=== PATIENT | male | born 1965 | race Two or more races ===

== ENCOUNTER 2025-01-01 00:06 | Inpatient (IN) | payer MEDICARE, MEDICAID ==
[~2025-01-01] VITALS: Ht 167.6 cm; Wt 61.7 kg
--- NOTE | 2025-01-01 00:46 | ED.PDOC ---
GI ASSESSMENT HPI Comments 59-year-old male who came to ER for abdominal pain. Patient has history of liver cirrhosis. States for the past few days he has been having diffuse abdominal pain and abdominal distention. Patient states that he usually has abdominal paracentesis twice a month to relieve the pressure. Chief Complaint: Abdominal Pain Time Seen by MD: 00:46 Reviewed Notes: Nurses Notes Allergies: Coded Allergies: Ketorolac Tromethamine (Verified Adverse Reaction, Mild, itching, 01/01/25) Home Meds Reported Medications Scopolamine (Scopolamine) 1 Mg/3 Days Dis, 1 MG TD, DIS 01/01/25 Spironolactone (Spironolactone) 50 Mg Tab, 50 MG PO BID, TAB 01/01/25 Potassium Chloride (POTASSIUM CHLORIDE CR) 10 Meq Tb, 20 MEQ PO, TAB 01/01/25 Ferrous Sulfate (Ferrous Sulfate) 325 Mg Tab, 325 MG PO TIDWM 01/01/25 Folic Acid (Folic Acid) 1 Mg Tab, 1 MG PO DAILY, MG 01/01/25 Levetiracetam (Keppra) 500 Mg Tab, 500 MG PO DAILY, TAB 01/01/25 Ondansetron HCl (Ondansetron Hydrochloride) 4 Mg Tab, 4 MG PO, TAB 01/01/25 Pentoxifylline (TRENTAL ER TABLET) 400 Mg Tb, 400 MG PO TID, TAB 01/01/25 Magnesium Oxide (MAGNESIUM OXIDE) 400 Mg Tab, 400 MG OR, TAB 01/01/25 Rifaximin (Xifaxan) 550 Mg Tab, 550 MG PO BID, TAB 01/01/25 Lactulose (Lactulose) 10 Gm/15 Ml Avril, 10 GM PO, ML 01/01/25 Multiple Vitamin (Multivitamins) Tab, 1 TAB PO DAILY, #30 TAB 2 Refills 01/01/25 Omeprazole (Gnp Omeprazole) 20 Mg Tab, 40 MG PO DAILY, TAB 01/01/25 Thiamine Mononitrate (B1) 100 Mg Tab, 100 MG PO, TAB 01/01/25 Furosemide (Furosemide) 40 Mg Tab, 40 MG PO DAILY 01/01/25 Information Source: Patient Mode of Arrival: Ambulatory Timing: Hours Duration: Since onset Prehospital treatment: None Quality: Aching Severity: Moderate Recent Hx of: Liver Disease Pain Location: Diffuse Associated sign and symptoms: Abdominal Pain, Other (Abdominal distention) Past Medical History PAST MEDICAL HISTORY: Liver Surgical History (Other): Abdominal paracentesis Family History Family History: Reviewed,noncontributory to illness Social History Smoker: Non-Smoker Alcohol: Sober Drugs: Denies Drug Use Lives In: Home Constitutional: denies: chills, diaphoresis, fatigue, fever, malaise, sweats, weakness, others EENTM: denies: blurred vision, double vision, ear bleeding, ear discharge, ear drainage, ear pain, ear ringing, eye pain, eye redness, hearing loss, mouth pain, mouth swelling, nasal discharge, nose bleeding, nose congestion, nose pain, photophobia, tearing, throat pain, throat swelling, voice changes, others Respiratory: denies: cough, hemoptysis, orthopnea, SOB at rest, shortness of breath, SOB with excertion, stridor, wheezing, others Cardiovascular: denies: chest pain, dizzy spells, diaphoresis, Dyspnea on exertion, edema, irregular heart beat, left arm pain, lightheadedness, palpitations, PND, syncope, others Gastrointestinal: reports: abdomen distended, abdominal pain; denies: blood streaked bowels, constipated, diarrhea, dysphagia, difficulty swallowing, hematemesis, melena, nausea, poor appetite, poor fluid intake, rectal bleeding, rectal pain, vomiting, others Genitourinary: denies: burning, dysuria, flank pain, frequency, hematuria, incontinence, penile discharge, penile sore, pain, testicle pain, testicle swelling, urgency, others Neurological: denies: dizziness, fainting, headache, left sided numbness, left sided weakness, numbness, paresthesia, pre-existing deficit, right sided numbness, right sided weakness, seizure, speech problems, tingling, tremors, weakness, others Musculoskeletal: denies: back pain, gout, joint pain, joint swelling, muscle pain, muscle stiffness, neck pain, others Integumetry: denies: bruises, change in color, change in hair/nails, dryness, laceration, lesions, lumps, rash, wounds, others Allergic/Immunocompromised: denies: Difficulty Healing, Frequent Infections, Hives, Itching, others Hematologic/Lymphatic: denies: anemia, blood clots, easy bleeding, easy bruising, swollen glands, others Endocrine: denies: excessive hunger, excessive sweating, excessive thirst, excessive urination, flushing, intolerance to cold, intolerance to heat, un explained weight gain, unexplained weight loss, others Psychiatric: denies: anxiety, bipolar disorder, depression, hopeless, panic disorder, schizophrenia, sleepless, suicidal, others Physical Exam General Appearance: No Apparent Distress, Normal HEENT: Normal ENT Inspection, Pharynx Normal, TMs Normal Neck: Full Range of Motion, Non-Tender, Normal, Normal Inspection Respiratory: Chest Non-Tender, Lungs Clear, No Accessory Muscle Use, No Respiratory Distress, Normal Breath Sounds Cardiovascular: No Edema, No JVD, No Murmur, No Gallop, Normal Peripheral Pulses, Regular Rate/Rhythm Breast Exam: Deferred Gastrointestinal: Diffuse, Distended, No Organomegaly, No Pulsatile Mass, Normal Bowel Sounds, Soft, Tenderness Genitalia: Deferred Pelvic: Deferred Rectal: Deferred Extremities: No calf tenderness, Normal capillary refill, Normal inspection, Normal range of motion, Non-tender, No pedal edema Musculoskeletal : Apperance: Normal Neurologic: Alert, 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 Was a procedure done?: No GI differential Dx Differential Diagnosis: Diverticular disease, Gastritis/PUD, Gastroenteritis, Hernia, Hepatitis, Other (Liver cirrhosis) X-Ray, Labs, Meds, VS Vital Signs Date Time Temp Pulse Resp B/P (MAP) Pulse Ox O2 Delivery O2 Flow Rate FiO2 01/01/25 04:00 71 17 103/52 (69) 95 01/01/25 03:00 72 15 109/62 (78) 98 01/01/25 02:22 67 16 109/67 01/01/25 01:57 77 18 111/72 01/01/25 01:20 98.4 73 11 105/63 (77) 99 98.4 01/01/25 01:20 73 11 99 Room Air* 0 21 01/01/25 00:13 72 01/01/25 00:06 97.7 72 20 110/74 (86) 100 97.7 Lab Test 01/01/25 00:36 Range/Units White Blood Count 6.4 4.4-10.8 10^3/uL Red Blood Count 2.67 L 4.5-5.90 10^6/uL Hemoglobin 9.8 L 13.5-17.5 g/dL Hematocrit 28.0 L 41.0-53.0 % Mean Corpuscular Volume 105.1 H 80.0-100.0 fL Mean Corpuscular Hemoglobin 36.6 H 28.0-32.0 pg Mean Corpuscular Hemoglobin Concent 34.8 32.0-36.0 g/dL Red Cell Distribution Width 23.7 H 11.8-14.3 % Platelet Count 117 L 140-450 10^3/uL Mean Platelet Volume 8.0 6.9-10.8 fL Neutrophils (%) (Auto) 71.8 37.0-80.0 % Lymphocytes (%) (Auto) 15.0 10.0-50.0 % Monocytes (%) (Auto) 9.8 0.0-12.0 % Eosinophils (%) (Auto) 3.1 0.0-7.0 % Basophils (%) (Auto) 0.3 0.0-2.0 % Neutrophils # (Auto) 4.6 1.6-8.6 10 ^3/uL Lymphocytes # (Auto) 1.0 0.4-5.4 10 ^3/uL Monocytes # (Auto) 0.6 0-1.3 10 ^3/uL Eosinophils # (Auto) 0.2 0-0.8 10 ^3/uL Basophils # (Auto) 0 0-0.2 10 ^3/uL Nucleated Red Blood Cells 0.4 % Prothrombin Time 15.1 H 9.3-11.8 sec Prothrombin Time INR 1.48 H 0.9-1.15 Activated Partial Thromboplast Time 35.9 H 24.5-34.5 SEC Sodium Level 131 L 136-145 mmol/L Potassium Level 4.5 3.5-5.1 mmol/L Chloride Level 102 98-107 mmol/L Carbon Dioxide Level 22 20-31 mmol/L Anion Gap 7 5-15 Blood Urea Nitrogen 31 H 9-23 mg/dL Creatinine 1.19 0.700-1.30 mg/dL Glomerular Filtration Rate Calc 70 >90 mL/min BUN/Creatinine Ratio 26.1 H 10.0-20.0 Serum Glucose 112 H 74-106 mg/dL Lactic Acid Level 1.6 0.4-2.0 mmol/L Calcium Level 12.0 H 8.7-10.4 mg/dL Total Bilirubin 6.7 H 0.2-1.0 mg/dL Aspartate Amino Transferase (AST) 39 13-40 U/L Alanine Aminotransferase (ALT) 37 7-40 U/L Alkaline Phosphatase 85 46-116 U/L Ammonia 30 11-32 umol/L Total Protein 6.4 5.7-8.2 g/dL Albumin 3.5 3.2-4.8 g/dL Lipase 59 H 12-53 U/L Current Medications Medications (Trade) Dose Ordered Sig/Citlali Route Start Time Stop Time Status Last Admin Morphine Sulfate 4 mg ONCE ONCE IV 01/01/25 02:00 01/01/25 02:01 DC 01/01/25 01:57 Ondansetron HCl (Zofran) 4 mg ONCE ONCE IV 01/01/25 02:00 01/01/25 02:01 DC 01/01/25 01:56 Time of 1ST Reevaluation: 00:41 Reevaluation 1ST: Unchanged Patient Education/Counseling: Diagnosis, Treatment Family Education/Counseling: No Family Present Departure 1 Departure Time of Disposition: 04:39 (Patient presented with abdominal pain that was concerning for possible appendicits, gastritis, cholecystitis, colitis, gastroenteritis, sbo, or orther possible surgical emergency. Data: 1. I ordered and reviewed the result of at least 3 labs including a CBC, BMP, and Urinalysis. 2. I independently interpreted the following tests: CT Abdoment and Pelvis is concerning for liver cirrhosis .Risk:This patient has a high risk of morbidity due to further diagnostic testing or treatment and may suffer from an acute a bdominal process disorder. Workup reveals worsening abdominal pain and patient should be admitted for further workup. and possible expert consultation. ) Impression: Primary Impression: Intractable abdominal pain Additional Impressions: Ascites Qualified Codes: R18.8 - Other ascites Generalized weakness Disposition: ADMITTED INPATIENT Admit to: Med Surg Condition: Serious Critical Care Note Critical Care Time?: Yes Critical care comment: Intractable abdominal pain Authorized and Performed by: Saida Fernandez MD Total critical care time: Approximately 42 minutes Due to a high probability of clinically significant, life threatening deterioration, the patient required my highest level of preparedness to intervene emergently and I personally spent this critical care time directly and personally managing the patient. This critical care time included obtaining a history; examining the patient; pulse oximetry; ordering and review of studies; arranging urgent treatment with development of a management plan; evaluation of patient's response to treatment; frequent reassessment; and, discussions with other providers. This critical care time was performed to assess and manage the high probability of imminent, life-threatening deterioration that could result in multi-organ failure. It was exclusive of separately billable procedures and treating other patients and teaching time. Please see my other sections and the rest of the note for further information on patient assessment and treatment. Stability Stability form required: No Heart Score Heart Score: Heart Score Response (Comments) Value History N/A 0 EKG N/A 0 Age N/A 0 Risk Factors N/A 0 Troponin N/A 0 Total 0 I personally scribed for SAIDA FERNANDEZ MD ([email or web address]) on 01/01/25 at 00:46. Electronically submitted by Carl Walton ([email or web address]). SAIDA FERNANDEZ MD January 01, 2025 00:46
[2025-01-01 01:08] LABS: Basophils # (auto) 0 10 ^3/uL (0-0.2); Eosinophils # (auto) 0.2 10 ^3/uL (0-0.8); Monocytes # (auto) 0.6 10 ^3/uL (0-1.3); Neutrophils # (auto) 4.6 10 ^3/uL (1.6-8.6); Platelet Count (auto) 117 10^3/uL (140-450); White Blood Cell 6.4 10^3/uL (4.4-10.8)
[2025-01-01 01:09] LABS: Basophils % (auto) 0.3 % (0.0-2.0); Eosinophils % (auto) 3.1 % (0.0-7.0); Hemoglobin 9.8 g/dL (13.5-17.5); Mean Corpuscular Hemoglobin 36.6 pg (28.0-32.0); Mean Corpuscular Hgb Conc. 34.8 g/dL (32.0-36.0); Mean Corpuscular Volume 105.1 fL (80.0-100.0); Monocytes % (auto) 9.8 % (0.0-12.0); Neutrophils % (auto) 71.8 % (37.0-80.0); Nucleated Red Blood Cells % 0.4 %; Red Blood Cells 2.67 10^6/uL (4.5-5.90); Red Cell Distribution Width 23.7 % (11.8-14.3)
[2025-01-01 01:11] LABS: INR 1.48 (0.9-1.15); Partial Thromboplastin Time 35.9 SEC (24.5-34.5); Prothrombin Time 15.1 sec (9.3-11.8)
[2025-01-01 01:19] LABS: Alanine Aminotransferase 37 U/L (7-40); Albumin 3.5 g/dL (3.2-4.8); Alkaline Phosphatase 85 U/L (46-116); Anion Gap 7 (5-15); Aspartate Aminotransferase 39 U/L (13-40); BUN/Creatinine Ratio 26.1 (10.0-20.0); Carbon Dioxide 22 mmol/L (20-31); Chloride 102 mmol/L (98-107); Potassium 4.5 mmol/L (3.5-5.1); Total Protein 6.4 g/dL (5.7-8.2)
[2025-01-01 01:20] VITALS: PULSE 73; RESP 11; O2SAT 99
[2025-01-01 01:20] LABS: Bilirubin, Total 6.7 mg/dL (0.2-1.0); Blood Urea Nitrogen 31 mg/dL (9-23); Glucose 112 mg/dL (74-106); Lipase 59 U/L (12-53); Sodium 131 mmol/L (136-145)
[2025-01-01] MEDS: ONDANSETRON HCL 4 MG/2 ML VIAL IV ONE (01:56)
[2025-01-01] MEDS: MORPHINE SULFATE 4 MG/ML SYR/VIAL IV ONE (01:57)
[2025-01-01] MEDS ORDERED: FURO40TA4 PO (02:50)
[2025-01-01] MEDS ORDERED: OMEP20TA PO (02:56)
[2025-01-01] MEDS ORDERED: FERR325T24 PO (02:56)
[2025-01-01] MEDS ORDERED: MAGN400T40 OR (02:56)
[2025-01-01] MEDS ORDERED: LACT10SO3 PO (02:56)
[2025-01-01] MEDS ORDERED: FOLI-119 PO (02:56)
[2025-01-01] MEDS ORDERED: ONDA-188 PO (02:56)
[2025-01-01] MEDS ORDERED: POTA-36 PO (02:56)
[2025-01-01] MEDS ORDERED: SCOP1DIS9 TD (02:56)
[2025-01-01] MEDS ORDERED: THIA100T26 PO (02:56)
[2025-01-01] MEDS ORDERED: RIFA550T PO (02:56)
[2025-01-01] MEDS ORDERED: MULT-1018 PO (02:56)
[2025-01-01] MEDS ORDERED: LEVE500T40 PO (02:56)
[2025-01-01] MEDS ORDERED: SPIR50TA5 PO (02:56)
[2025-01-01] MEDS ORDERED: PEN400T PO (02:56)
[2025-01-01] MEDS: IOHEXOL 300 MG/ML 100ML BOTTLE IJ ONE (03:38)
--- NOTE | 2025-01-01 04:26 | DVH ---
Exam: CT CT AB PEL WITH IV CON ONLY History: abdominal pain Comparison Study: None available at time of dictation. Contrast: Type of contrast: Omnipaque 300 Contrast injected: 100 mL Contrast wasted: 0 TECHNIQUE: CT scan of the abdomen pelvis was performed with intravenous contrast. Coronal and sagitt al reformatted images are provided. Radiation Dose Information: CT Dose: CTDI volume is 12.8 mGy. Dose-length product is 857 mGy*cm FINDINGS: Lung Bases: No acute or significant lung base finding. Normal heart size. No pleural or pericardial effusion. Liver: The liver is small. No focal lesions. Normal hepatic vascular enhancement. Gallbladder and Biliary Tree: Gallstone. No biliary ductal dilatation. Spleen: Unremarkable Pancreas: The pancreas is normal in appearance without focal lesions or abnormal enhancement. Adrenal Glands: Unremarkable Kidneys: Kidneys demonstrate normal symmetric enhancement without focal lesions, calculi or hydroneph rosis. Urinary bladder: Unremarkable. Bowel: The stomach is grossly normal in appearance. The small bowel is normal in caliber. Scattered s tool throughout colon. Liquid stool in the ascending colon. Sigmoid diverticulosis without acute div erticulitis. Normal caliber appendix without inflammatory changes. Intraperitoneal cavity: Mild retroperitoneal fluid and fluid tracking along the bilateral pericolic g utters into the right lower pelvis. No fluid collection. No pneumoperitoneum. Lymphadenopathy: No mesenteric, retroperitoneal or periportal lymphadenopathy. Abdominal Wall and Mesentery: Unremarkable. Vasculature: The visualized abdominal aorta is normal in size and caliber. Abdominal and pelvic vess els demonstrate normal enhancement. Perisplenic varices with a numerous tiny collateral vessels noted along the inferior margin of the spleen. Gastroesophageal varices noted. Pelvic Organs: Unremarkable Musculoskeletal: No aggressive focal bony lesions, acute fractures or dislocation. Left hip prosthesi s. Soft tissues: Unremarkable. IMPRESSION: 1. No acute abnormality in the abdomen or pelvis. 2. Cirrhotic morphology of the liver. Paraesophageal and splenic varices which may indicate underlyin g portal hypertension. 3. Mild ascites. 4. Gallstones without acute inflammatory changes. 5. Sigmoid diverticulosis without acute diverticulitis. All CT scans at this medical facility are performed using dose modulation techniques as appropriate t o a performed exam including the following: Automated exposure control was utilized; adjustment of th e MA and/or KV according to patient size; and use of iterative reconstruction technique.
--- NOTE | 2025-01-01 07:20 | DVHHP2 ---
History of Present Illness Reason for Visit: Abdominal pain History of Present Illness Ba Harris is a 59-year-old male with past medical history of hypertension, anxiety, cirrhosis, gastritis, inguinal hernia, sleep apnea, seizures, and cholecystectomy who presents to the ED with abdominal pain and nausea. Per reports patient gets a paracentesis every three weeks and he apparently missed the last appointment it has been four weeks out since the last paracentesis. Upon examination patient is refusing to answer questions at this time. No acute distress or shortness on breath noted. Patient resting in bed comfortably. 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 GI: Gastritis Hepatobiliary: Cirrhosis Psych: Anxiety Past Medical History Inguinal hernia Sleep Apnea Past Surgical History: Cholecystectomy Review of Systems Gastrointestinal: Nausea, Abdominal Pain Allergies: Coded Allergies: Ketorolac Tromethamine (Verified Adverse Reaction, Mild, itching, 01/01/25) Medications Current Medications Medications Dose Ordered Sig/Citlali Route Start Time Stop Time Status Last Admin Dose Admin Ondansetron HCl 4 mg Q4HP PRN IV 01/01/25 07:15 UNV Acetaminophen 650 mg Q6HP PRN PO 01/01/25 07:15 UNV Ceftriaxone Sodium 50 ml @ 100 mls/hr DAILY@09 IV 01/01/25 09:00 UNV Exam Vital Signs Vital Signs Date Time Temp Pulse Resp B/P (MAP) Pulse Ox O2 Delivery O2 Flow Rate FiO2 01/01/25 06:00 77 16 109/58 (75) 97 01/01/25 01:20 98.4 98.4 01/01/25 01:20 Room Air* 0 21 General Appearance: Alert, No acute distress HEENT: Atraumatic, Mucous membr. moist/pink Respiratory: Clear to auscultation, Normal air movement Cardiovascular: Regular rate, Normal S1, Normal S2, No murmurs Abdominal: Soft Extremities: No clubbing, No cyanosis Neuro: Sensation intact Labs/Xrays Labs Test 01/01/25 00:36 Range/Units White Blood Count 6.4 4.4-10.8 10^3/uL Red Blood Count 2.67 L 4.5-5.90 10^6/uL Hemoglobin 9.8 L 13.5-17.5 g/dL Hematocrit 28.0 L 41.0-53.0 % Mean Corpuscular Volume 105.1 H 80.0-100.0 fL Mean Corpuscular Hemoglobin 36.6 H 28.0-32.0 pg Mean Corpuscular Hemoglobin Concent 34.8 32.0-36.0 g/dL Red Cell Distribution Width 23.7 H 11.8-14.3 % Platelet Count 117 L 140-450 10^3/uL Mean Platelet Volume 8.0 6.9-10.8 fL Neutrophils (%) (Auto) 71.8 37.0-80.0 % Lymphocytes (%) (Auto) 15.0 10.0-50.0 % Monocytes (%) (Auto) 9.8 0.0-12.0 % Eosinophils (%) (Auto) 3.1 0.0-7.0 % Basophils (%) (Auto) 0.3 0.0-2.0 % Neutrophils # (Auto) 4.6 1.6-8.6 10 ^3/uL Lymphocytes # (Auto) 1.0 0.4-5.4 10 ^3/uL Monocytes # (Auto) 0.6 0-1.3 10 ^3/uL Eosinophils # (Auto) 0.2 0-0.8 10 ^3/uL Basophils # (Auto) 0 0-0.2 10 ^3/uL Nucleated Red Blood Cells 0.4 % Prothrombin Time 15.1 H 9.3-11.8 sec Prothrombin Time INR 1.48 H 0.9-1.15 Activated Partial Thromboplast Time 35.9 H 24.5-34.5 SEC Sodium Level 131 L 136-145 mmol/L Potassium Level 4.5 3.5-5.1 mmol/L Chloride Level 102 98-107 mmol/L Carbon Dioxide Level 22 20-31 mmol/L Anion Gap 7 5-15 Blood Urea Nitrogen 31 H 9-23 mg/dL Creatinine 1.19 0.700-1.30 mg/dL Glomerular Filtration Rate Calc 70 >90 mL/min BUN/Creatinine Ratio 26.1 H 10.0-20.0 Serum Glucose 112 H 74-106 mg/dL Lactic Acid Level 1.6 0.4-2.0 mmol/L Calcium Level 12.0 H 8.7-10.4 mg/dL Total Bilirubin 6.7 H 0.2-1.0 mg/dL Aspartate Amino Transferase (AST) 39 13-40 U/L Alanine Aminotransferase (ALT) 37 7-40 U/L Alkaline Phosphatase 85 46-116 U/L Ammonia 30 11-32 umol/L Total Protein 6.4 5.7-8.2 g/dL Albumin 3.5 3.2-4.8 g/dL Lipase 59 H 12-53 U/L Exam: CT CT AB PEL WITH IV CON ONLY History: abdominal pain Comparison Study: None available at time of dictation. Contrast: Type of contrast: Omnipaque 300 Contrast injected: 100 mL Contrast wasted: 0 TECHNIQUE: CT scan of the abdomen pelvis was performed with intravenous contrast. Coronal and sagittal reformatted images are provided. Radiation Dose Information: CT Dose: CTDI volume is 12.8 mGy. Dose-length product is 857 mGy*cm FINDINGS: Lung Bases: No acute or significant lung base finding. Normal heart size. No pleural or pericardial effusion. Liver: The liver is small. No focal lesions. Normal hepatic vascular enhancement. Gallbladder and Biliary Tree: Gallstone. No biliary ductal dilatation. Spleen: Unremarkable Pancreas: The pancreas is normal in appearance without focal lesions or abnormal enhancement. Adrenal Glands: Unremarkable Kidneys: Kidneys demonstrate normal symmetric enhancement without focal lesions, calculi or hydronephrosis. Urinary bladder: Unremarkable. Bowel: The stomach is grossly normal in appearance. The small bowel is normal in caliber. Scattered stool throughout colon. Liquid stool in the ascending colon. Sigmoid diverticulosis without acute diverticulitis. Normal caliber appendix without inflammatory changes. Intraperitoneal cavity: Mild retroperitoneal fluid and fluid tracking along the bilateral pericolic gutters into the right lower pelvis. No fluid collection. No pneumoperitoneum. Lymphadenopathy: No mesenteric, retroperitoneal or periportal lymphadenopathy. Abdominal Wall and Mesentery: Unremarkable. Vasculature: The visualized abdominal aorta is normal in size and caliber. Abdominal and pelvic vessels demonstrate normal enhancement. Perisplenic varices with a numerous tiny collateral vessels noted along the inferior margin of the spleen. Gastroesophageal varices noted. Pelvic Organs: Unremarkable Musculoskeletal: No aggressive focal bony lesions, acute fractures or dislocation. Left hip prosthesis. Soft tissues: Unremarkable. IMPRESSION: 1. No acute abnormality in the abdomen or pelvis. 2. Cirrhotic morphology of the liver. Paraesophageal and splenic varices which may indicate underlying portal hypertension. 3. Mild ascites. 4. Gallstones without acute inflammatory changes. 5. Sigmoid diverticulosis without acute diverticulitis. Assessment/Plan Assessment/Plan Assessment Intractable abdominal pain with nausea likely due to cirrhosis with mild ascites Cholelithiasis Sigmoid diverticulosis Cirrhotic liver Probable portal hypertension Anemia Thrombocytopenia Hyponatremia Hyperbilirubinemia Hyperlipasemia History of hypertension History of anxiety History of gastritis History of paracentesis every three weeks History of inguinal hernia History of sleep apnea History of seizures History of cholecystectomy Plan Admit to [facility] CT abdomen pelvis Antiemetics Pain management Ammonia levels Blood cultures Lactic level Lipase PT/PTT EKG IV antibiotics-ceftriaxone Diet Home Medications reconciled DVT prophylaxis-SCDs PUD prophylaxis-PPIs Discussed plan of care with patient and nurse GI consult Plan discussed with: Patient My Orders 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 Procedure Category Date Status Time * [facility] Faculty Member CONS 01/01/25 Transmitted 07:05 Admit ADMIT 01/01/25 Transmitted 07:05 Allergies KEILA 01/01/25 In Process 07:05 Code Status CODE 01/01/25 Transmitted 07:05 Ondansetron Hcl PHA 01/01/25 Logged (Zofran) 07:15 Complete Blood Count LAB 01/02/25 Verified 04:00 Comprehensive LAB 01/02/25 Verified Metabolic Panel 04:00 Cardiac DIET 01/01/25 Transmitted Diet-2gna,Lofat,Lochol Breakfast Acetaminophen Tablet PHA 01/01/25 Logged (Tylenol Tablet) 07:15 Sequential KEILA 01/01/25 In Process Compression Device Ceftriaxone 1gm/50ml PHA 01/01/25 Logged D5w (Rocephin) 09:00 Furosemide Tablet PHA 01/01/25 Transmitted (Lasix Tablet) 10:00 Levetiracetam Tablet PHA 01/01/25 Transmitted (Keppra Tablet) 10:00 Multiple Vitamin PHA 01/01/25 Transmitted Tablet (Mvi Tab) 10:00 Pentoxifylline Er PHA 01/01/25 Transmitted Tablet (Trental Er Tab 14:00 Rifaximin (Xifaxan) PHA 01/01/25 Transmitted 10:00 (Nf) Ferrous Sulfate PHA 01/01/25 Transmitted 08:00 (Nf) Folic Acid PHA 01/01/25 Transmitted 10:00 (Nf) Omeprazole (Gnp PHA 01/01/25 Transmitted Omeprazole) 10:00 (Nf) Spironolactone PHA 01/01/25 Transmitted 10:00 Lactulose Oral PHA 01/01/25 Transmitted 10:00 Magnesium Oxide PHA 01/01/25 Transmitted Tablet (Mag-Ox Tablet) 10:00 Thiamine Tab PHA 01/01/25 Transmitted 10:00 Date of Service: January 01, 2025 Billing Provider: YIN YORK Common Visit Codes: [id number] INP/OBS CARE (HIGH) YIN YORK January 01, 2025 07:20
[2025-01-01 07:50] VITALS: PULSE 68; RESP 16; O2SAT 96
[2025-01-01] MEDS ORDERED: PATIENTS OWN MEDICATION (Ferrous Sulfate 325 MG) PO SCH (08:00)
[2025-01-01] MEDS: FUROSEMIDE 40 MG TAB PO SCH (09:58)
[2025-01-01] MEDS: LACTULOSE 20Gm/30ML SOLN PO SCH (09:58)
[2025-01-01] MEDS: levETIRAcetam 500 MG TAB PO SCH (09:59)
[2025-01-01] MEDS: rifAXIMin 550 MG TAB PO SCH (09:59)
[2025-01-01] MEDS: MAGNESIUM OXIDE 400 MG TAB PO SCH (09:59)
[2025-01-01] MEDS ORDERED: PATIENTS OWN MEDICATION (Folic Acid 1 MG) PO SCH (10:00)
[2025-01-01] MEDS: MULTIPLE VITAMIN TAB PO SCH (10:00)
[2025-01-01] MEDS ORDERED: PANTOPRAZOLE 40 MG TAB PO SCH (10:00)
[2025-01-01] MEDS: THIAMINE HCL 100 MG TAB PO SCH (10:00)
[2025-01-01] MEDS ORDERED: SPIRONOLACTONE 50 MG PO SCH (10:00)
[2025-01-01] MEDS ORDERED: PATIENTS OWN MEDICATION (Omeprazole (Gnp Omeprazole) 40 MG) PO SCH (10:00)
[2025-01-01] MEDS: PANTOPRAZOLE 40 MG/10 ML VIAL INJ IV SCH (10:01)
[2025-01-01] MEDS: cefTRIAXone 1GM/50ML D5W 50 ML IV SCH (10:01)
[2025-01-01] MEDS: FOLIC ACID 1 MG TAB PO SCH (10:03)
[2025-01-01] MEDS: SPIRONOLACTONE 25 MG TAB PO SCH (10:03)
[2025-01-01] MEDS: FERROUS SULFATE 325mg EC TAB PO SCH (12:08)
--- NOTE | 2025-01-01 14:22 | ECG ---
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
[2025-01-01] MEDS: PENTOXIFYLLINE 400 MG ER TAB PO SCH (15:30)
[2025-01-01 19:10] VITALS: PULSE 67; RESP 20; O2SAT 97
[2025-01-01 22:18] VITALS: BP 107/60; PULSE 65; RESP 16; TEMP 97.5; O2SAT 99
[2025-01-01] MEDS ORDERED: LACT10PA2 PO (23:29)
[2025-01-01] MEDS ORDERED: MID10T PO (23:31)
[2025-01-02] VITALS (8 sets, daily range): BP systolic 99–114; BP diastolic 56–68; PULSE 63–73; RESP 14–16; TEMP 97.2–98; O2SAT 97–100
[2025-01-02 07:41] LABS: Alanine Aminotransferase 27 U/L (7-40); Albumin 3.4 g/dL (3.2-4.8); Alkaline Phosphatase 81 U/L (46-116); Anion Gap 8 (5-15); Aspartate Aminotransferase 24 U/L (13-40); BUN/Creatinine Ratio 21.3 (10.0-20.0); Carbon Dioxide 21 mmol/L (20-31); Chloride 103 mmol/L (98-107); Glucose 97 mg/dL (74-106); Potassium 4.1 mmol/L (3.5-5.1); Total Protein 6.1 g/dL (5.7-8.2)
[2025-01-02 07:44] LABS: Bilirubin, Total 8.4 mg/dL (0.2-1.0); Blood Urea Nitrogen 29 mg/dL (9-23); Calcium 11.6 mg/dL (8.7-10.4); Sodium 132 mmol/L (136-145)
[2025-01-02 07:46] LABS: Eosinophils # (auto) 0.2 10 ^3/uL (0-0.8); Hemoglobin 9.6 g/dL (13.5-17.5); Lymphocytes # (auto) 0.7 10 ^3/uL (0.4-5.4); Monocytes # (auto) 0.5 10 ^3/uL (0-1.3); Neutrophils # (auto) 3.8 10 ^3/uL (1.6-8.6); Nucleated Red Blood Cells % 0.2 %; White Blood Cell 5.3 10^3/uL (4.4-10.8)
[2025-01-02 07:49] LABS: Basophils # (auto) 0.1 10 ^3/uL (0-0.2); Basophils % (auto) 1.2 % (0.0-2.0); Eosinophils % (auto) 3.2 % (0.0-7.0); Hematocrit 26.9 % (41.0-53.0); Lymphocytes % (auto) 13.5 % (10.0-50.0); Mean Corpuscular Hemoglobin 37.2 pg (28.0-32.0); Mean Corpuscular Hgb Conc. 35.7 g/dL (32.0-36.0); Monocytes % (auto) 9.5 % (0.0-12.0); Neutrophils % (auto) 72.6 % (37.0-80.0); Platelet Count (auto) 109 10^3/uL (140-450); Red Blood Cells 2.58 10^6/uL (4.5-5.90); Red Cell Distribution Width 23.6 % (11.8-14.3)
[2025-01-02 08:31] LABS: Anisocytosis Moderate
[2025-01-02 08:32] LABS: Macrocytosis Slight; Platelet Estimate Decreased
--- NOTE | 2025-01-02 12:17 | DVHINCON2 ---
Date of service: January 02, [address] Beth Reason for Consultation Abdominal pain Cirrhosis History of Present Illness Patient is a 59-year-old male with alcoholic cirrhosis with decompensations including varices, history of ascites, hyperbilirubinemia, thrombocytopenia admitted with intractable abdominal pain for several days. Patient denies any melena or hematochezia constipation or GI bleeding. Pain is epigastric without radiation. GI consultation was obtained for evaluation Past Medical History Alcoholic cirrhosis Hypertension Seizure disorder Sleep apnea Anxiety Past Surgical History Cholecystectomy Family History: Patient reports no known family medical history. Family History Or gastrointestinal diseases or malignancies Social History History of alcohol abuse Allergies: Coded Allergies: Ketorolac Tromethamine (Verified Adverse Reaction, Mild, itching, 01/01/25) Home Meds Reported Medications Midodrine HCl (Midodrine HCl) 10 Mg Tab, 10 MG PO for systolic less then 90mmhg, TAB 01/01/25 Lactulose (Lactulose) 10 Gm Jose Manuel, 30 GM PO TID, PACK 01/01/25 Scopolamine (Scopolamine) 1 Mg/3 Days Dis, 1 MG TD, DIS 01/01/25 Spironolactone (Spironolactone) 50 Mg Tab, 50 MG PO BID, TAB 01/01/25 Potassium Chloride (POTASSIUM CHLORIDE CR) 10 Meq Tb, 20 MEQ PO, TAB 01/01/25 Ferrous Sulfate (Ferrous Sulfate) 325 Mg Tab, 325 MG PO TIDWM 01/01/25 Folic Acid (Folic Acid) 1 Mg Tab, 1 MG PO DAILY, MG 01/01/25 Levetiracetam (Keppra) 500 Mg Tab, 500 MG PO DAILY, TAB 01/01/25 Ondansetron HCl (Ondansetron Hydrochloride) 4 Mg Tab, 4 MG PO, TAB 01/01/25 Pentoxifylline (TRENTAL ER TABLET) 400 Mg Tb, 400 MG PO TID, TAB 01/01/25 Magnesium Oxide (MAGNESIUM OXIDE) 400 Mg Tab, 400 MG OR, TAB 01/01/25 Rifaximin (Xifaxan) 550 Mg Tab, 550 MG PO BID, TAB 01/01/25 Multiple Vitamin (Multivitamins) Tab, 1 TAB PO DAILY, #30 TAB 2 Refills 01/01/25 Omeprazole (Gnp Omeprazole) 20 Mg Tab, 40 MG PO DAILY, TAB 01/01/25 Furosemide (Furosemide) 40 Mg Tab, 40 MG PO DAILY 01/01/25 Discontinued Reported Medications Lactulose (Lactulose) 10 Gm/15 Ml Avril, 10 GM PO, ML 01/01/25 Thiamine Mononitrate (B1) 100 Mg Tab, 100 MG PO, TAB 01/01/25 Current Medications Current Medications Medications (Trade) Dose Ordered Sig/Citlali Route PRN Reason Start Time Stop Time Status Last Admin Pentoxifylline (TRENtal ER Tablet) 400 mg TID PO 01/01/25 14:00 01/02/25 05:58 Review of Systems See HPI for review of systems Vital Signs Vital Signs Date Time Temp Pulse Resp B/P (MAP) Pulse Ox O2 Delivery O2 Flow Rate FiO2 01/02/25 09:55 111/63 01/02/25 08:40 97.8 67 16 97 97.8 01/01/25 22:18 Room Air* 0 21 Physical Exam General: Alert and oriented male lying bed no distress Head: NC/AT EOMI PERRLA sclera icterus Heart: Regular rate and rhythm Abdomen: Soft nondistended, mild tenderness preparation Extremity: No clubbing cyanosis or edema Neurologically: Mild asterixis moves all four extremities and follows commands Labs/Diagnostic Data CT scan 1. No acute abnormality in the abdomen or pelvis. 2. Cirrhotic morphology of the liver. Paraesophageal and splenic varices which may indicate underlying portal hypertension. 3. Mild ascites. 4. Gallstones without acute inflammatory changes. 5. Sigmoid diverticulosis without acute diverticulitis. Labs Test 01/02/25 06:26 01/01/25 00:36 Range/Units White Blood Count 5.3 4.4-10.8 10^3/uL Red Blood Count 2.58 L 4.5-5.90 10^6/uL Hemoglobin 9.6 L 13.5-17.5 g/dL Hematocrit 26.9 L 41.0-53.0 % Mean Corpuscular Volume 104.0 H 80.0-100.0 fL Mean Corpuscular Hemoglobin 37.2 H 28.0-32.0 pg Mean Corpuscular Hemoglobin Concent 35.7 32.0-36.0 g/dL Red Cell Distribution Width 23.6 H 11.8-14.3 % Platelet Count 109 L 140-450 10^3/uL Mean Platelet Volume 7.7 6.9-10.8 fL Neutrophils (%) (Auto) 72.6 37.0-80.0 % Lymphocytes (%) (Auto) 13.5 10.0-50.0 % Monocytes (%) (Auto) 9.5 0.0-12.0 % Eosinophils (%) (Auto) 3.2 0.0-7.0 % Basophils (%) (Auto) 1.2 0.0-2.0 % Neutrophils # (Auto) 3.8 1.6-8.6 10 ^3/uL Lymphocytes # (Auto) 0.7 0.4-5.4 10 ^3/uL Monocytes # (Auto) 0.5 0-1.3 10 ^3/uL Eosinophils # (Auto) 0.2 0-0.8 10 ^3/uL Basophils # (Auto) 0.1 0-0.2 10 ^3/uL Nucleated Red Blood Cells 0.2 % Platelet Estimate Decreased Poikilocytosis (manual) Slight Anisocytosis (manual) Moderate Macrocytosis Slight [place] Cells Few Sodium Level 132 L 136-145 mmol/L Potassium Level 4.1 3.5-5.1 mmol/L Chloride Level 103 98-107 mmol/L Carbon Dioxide Level 21 20-31 mmol/L Anion Gap 8 5-15 Blood Urea Nitrogen 29 H 9-23 mg/dL Creatinine 1.36 H 0.700-1.30 mg/dL Glomerular Filtration Rate Calc 59 >90 mL/min BUN/Creatinine Ratio 21.3 H 10.0-20.0 Serum Glucose 97 74-106 mg/dL Calcium Level 11.6 H 8.7-10.4 mg/dL Total Bilirubin 8.4 H 0.2-1.0 mg/dL Aspartate Amino Transferase (AST) 24 13-40 U/L Alanine Aminotransferase (ALT) 27 7-40 U/L Alkaline Phosphatase 81 46-116 U/L Total Protein 6.1 5.7-8.2 g/dL Albumin 3.4 3.2-4.8 g/dL Prothrombin Time 15.1 H 9.3-11.8 sec Prothrombin Time INR 1.48 H 0.9-1.15 Activated Partial Thromboplast Time 35.9 H 24.5-34.5 SEC Lactic Acid Level 1.6 0.4-2.0 mmol/L Ammonia 30 11-32 umol/L Lipase 59 H 12-53 U/L Microbiology Date/Time Source Procedure Growth Status 01/01/25 00:36 Blood Blood Culture - Preliminary NO GROWTH AFTER 24 HOURS OF INCUBATION. Resulted Assessment 1. Anemia 2. Thrombocytopenia 3. Cirrhosis 4. Varices 5. History of ascites 6. Elevation of liver enzymes 7. Abdominal pain Problems(with codes): (1) Ascites (2) Generalized weakness (3) Intractable abdominal pain Plan/Recommendation 1. Pain control 2. Follow labs 3. Continue with medications 4. No indication for endoscopy or colonoscopy at this time 5. Patient does not need paracentesis based on imaging 6. Continue diet as tolerated Plan discussed with: Patient KINGSLEY GASCA MD January 02, 2025 12:17
--- NOTE | 2025-01-02 12:55 | DVHPN2 ---
Reviewed: Care Plan, H&P, Labs, Medications, Previous Orders, Radiology Changes from previous H/P or p: No Changes Gastrointestinal: Nausea, Abdominal Pain Objective Vitals Vital Signs Date Time Temp Pulse Resp B/P (MAP) Pulse Ox O2 Delivery O2 Flow Rate FiO2 01/02/25 09:55 111/63 01/02/25 08:40 97.8 67 16 97 97.8 01/01/25 22:18 Room Air* 0 21 Intake/Output Intake and Output 01/02/25 07:00 Intake Total 350 ml Balance 350 ml Intake Oral 300 ml IV Total 50 ml # Voids 2 Medications Current Medications Medications Dose Ordered Sig/Citlali Route Start Time Stop Time Status Last Admin Dose Admin Ondansetron HCl 4 mg Q4HP PRN IV 01/01/25 07:15 Acetaminophen 650 mg Q6HP PRN PO 01/01/25 07:15 Ceftriaxone Sodium 50 ml @ 100 mls/hr DAILY@09 IV 01/01/25 09:00 01/02/25 09:56 100 MLS/HR Furosemide 40 mg DAILY PO 01/01/25 10:00 01/02/25 09:55 40 MG Levetiracetam 500 mg DAILY PO 01/01/25 10:00 01/02/25 09:54 500 MG Multivitamins 1 tab DAILY PO 01/01/25 10:00 01/02/25 09:55 1 TAB Pentoxifylline 400 mg TID PO 01/01/25 14:00 01/02/25 05:58 400 MG Rifaximin 550 mg BID PO 01/01/25 10:00 01/02/25 09:51 550 MG Patient Own Medication 325 mg TIDWM PO 01/01/25 08:00 UNV Patient Own Medication 1 mg DAILY PO 01/01/25 10:00 UNV Patient Own Medication 40 mg DAILY PO 01/01/25 10:00 UNV Patient Own Medication 50 mg BID PO 01/01/25 10:00 UNV Lactulose 15 ml DAILY PO 01/01/25 10:00 01/02/25 09:56 15 ML Magnesium Oxide 400 mg DAILY PO 01/01/25 10:00 01/02/25 09:55 400 MG Thiamine HCl 100 mg DAILY PO 01/01/25 10:00 01/02/25 09:56 100 MG Pantoprazole Sodium 40 mg DAILY IV 01/01/25 10:00 01/02/25 09:57 40 MG Ferrous Sulfate 325 mg TIDWM PO 01/01/25 12:00 01/02/25 09:55 325 MG Folic Acid 1 mg DAILY PO 01/01/25 10:00 01/02/25 09:55 1 MG Pantoprazole Sodium 40 mg DAILY PO 01/01/25 10:00 Cancel Spironolactone 50 mg BID PO 01/01/25 10:00 01/02/25 09:55 50 MG Laboratory Results Laboratory Tests 01/02/25 06:26 Chemistry Test 01/02/25 06:26 Albumin 3.4 g/dL (3.2-4.8) Calcium Level 11.6 mg/dL (8.7-10.4) H Total Protein 6.1 g/dL (5.7-8.2) LFT Test 01/02/25 06:26 Alanine Aminotransferase (ALT) 27 U/L (7-40) Alkaline Phosphatase 81 U/L (46-116) Aspartate Amino Transferase (AST) 24 U/L (13-40) Total Bilirubin 8.4 mg/dL (0.2-1.0) H Microbiology Microbiology Date/Time Source Procedure Growth Status 01/01/25 00:36 Blood Blood Culture - Preliminary NO GROWTH AFTER 24 HOURS OF INCUBATION. Resulted Labs and/or images reviewed: Labs reviewed by me, Image(s) reviewed by me Assessment/Plan Assessment/Plan Intractable abdominal pain with nausea secondary to cirrhosis of liver, seen by GI Dr. Mendez. advised no paracentesis needed as it is minimal ascites Acute Hepatic encephalopathy, ammonia level 30, lactulose 30 mL p.o. q.6 hours Cirrhosis of liver Mild ascites Cholelithiasis Diverticulosis Anemia Thrombocytopenia Hyponatremia Anxiety Seizures History of repeated paracentesis Esophageal varices Lives with his girlfriend who is also his caregiver Time Spent 70 minutes Advanced care planning time 20 minutes Patient is full code Plan discussed with: Patient Date of Service: January 02, 2025 Billing Provider: HUNTER AGUILLON MD Common Visit Codes: [id number] CARE 30-74 MIN HUNTER AGUILLON MD January 02, 2025 12:55
[2025-01-02] MEDS: LACTULOSE 20Gm/30ML SOLN PO SCH (14:42)
[2025-01-02] MEDS: ACETAMINOPHEN 325 MG TAB PO PRN (21:39)
[2025-01-02] MEDS: ONDANSETRON HCL 4 MG/2 ML VIAL IV PRN (23:30)
[2025-01-03] VITALS (8 sets, daily range): BP systolic 97–110; BP diastolic 52–65; PULSE 70–78; RESP 15–18; TEMP 97.7–98.3; O2SAT 98–100
--- NOTE | 2025-01-03 13:06 | DVHPN2 ---
Reviewed: Care Plan, H&P, Labs, Medications, Previous Orders, Radiology Changes from previous H/P or p: No Changes Gastrointestinal: Nausea, Abdominal Pain Objective Vitals Vital Signs Date Time Temp Pulse Resp B/P (MAP) Pulse Ox O2 Delivery O2 Flow Rate FiO2 01/03/25 09:00 97.9 74 17 104/62 (76) 99 97.9 01/03/25 08:10 Room Air* 0 21 Intake/Output Intake and Output 01/03/25 07:00 Intake Total 1340 ml Output Total 1780 ml Balance -440 ml Intake Oral 1290 ml IV Total 50 ml Output Urine Total 1780 ml Medications Current Medications Medications Dose Ordered Sig/Citlali Route Start Time Stop Time Status Last Admin Dose Admin Ondansetron HCl 4 mg Q4HP PRN IV 01/01/25 07:15 01/03/25 08:43 4 MG Acetaminophen 650 mg Q6HP PRN PO 01/01/25 07:15 01/03/25 08:47 650 MG Ceftriaxone Sodium 50 ml @ 100 mls/hr DAILY@09 IV 01/01/25 09:00 01/03/25 08:35 100 MLS/HR Furosemide 40 mg DAILY PO 01/01/25 10:00 01/02/25 09:55 40 MG Levetiracetam 500 mg DAILY PO 01/01/25 10:00 01/03/25 08:48 500 MG Multivitamins 1 tab DAILY PO 01/01/25 10:00 01/02/25 09:55 1 TAB Pentoxifylline 400 mg TID PO 01/01/25 14:00 01/03/25 05:41 400 MG Rifaximin 550 mg BID PO 01/01/25 10:00 01/03/25 08:48 550 MG Patient Own Medication 325 mg TIDWM PO 01/01/25 08:00 UNV Patient Own Medication 1 mg DAILY PO 01/01/25 10:00 UNV Patient Own Medication 40 mg DAILY PO 01/01/25 10:00 UNV Patient Own Medication 50 mg BID PO 01/01/25 10:00 UNV Magnesium Oxide 400 mg DAILY PO 01/01/25 10:00 01/03/25 08:49 400 MG Thiamine HCl 100 mg DAILY PO 01/01/25 10:00 01/03/25 08:47 100 MG Pantoprazole Sodium 40 mg DAILY IV 01/01/25 10:00 01/03/25 08:43 40 MG Ferrous Sulfate 325 mg TIDWM PO 01/01/25 12:00 01/03/25 08:49 325 MG Folic Acid 1 mg DAILY PO 01/01/25 10:00 01/03/25 08:49 1 MG Pantoprazole Sodium 40 mg DAILY PO 01/01/25 10:00 Cancel Spironolactone 50 mg BID PO 01/01/25 10:00 01/03/25 08:48 50 MG Lactulose 30 ml Q6HR PO 01/02/25 13:00 01/03/25 08:50 30 ML Laboratory Results Laboratory Tests 01/02/25 06:26 Microbiology Microbiology Date/Time Source Procedure Growth Status 01/01/25 00:36 Blood Blood Culture - Preliminary NO GROWTH AFTER 48 HOURS OF INCUBATION. Resulted Labs and/or images reviewed: Labs reviewed by me, Image(s) reviewed by me Assessment/Plan Assessment/Plan Intractable abdominal pain with nausea secondary to cirrhosis of liver, seen by GI Dr. Mendez. advised no paracentesis needed as it is minimal ascites no colonoscopy needed Acute Hepatic encephalopathy, ammonia level 30, lactulose 30 mL p.o. q.6 hours Cirrhosis of liver Mild ascites Cholelithiasis Diverticulosis Anemia Thrombocytopenia Hyponatremia Anxiety Seizures History of repeated paracentesis Esophageal varices Lives with his girlfriend Yessica who is also his caregiver Time Spent 50 minutes Advanced care planning time 20 minutes Patient is full code Plan discussed with: Patient My Orders Orders - HUNTER AGUILLON MD Procedure Category Date Status Time Cover Wound With Foam KEILA 01/02/25 In Process Dressing 10:52 Apply Z-Guard KEILA 01/02/25 In Process 14:04 Date of Service: January 03, 2025 Billing Provider: HUNTER AGUILLON MD Common Visit Codes: [id number] INP/OBS CARE(HIGH) HUNTER AGUILLON MD January 03, 2025 13:06
[2025-01-03] MEDS: traMADol HCL 50 MG TAB PO ONE (21:36)
[2025-01-04 05:00] VITALS: BP 101/66; PULSE 82; RESP 12; TEMP 97.9; O2SAT 100
[2025-01-04 06:22] LABS: Basophils # (auto) 0.1 10 ^3/uL (0-0.2); Basophils % (auto) 0.9 % (0.0-2.0); Eosinophils # (auto) 0.2 10 ^3/uL (0-0.8); Eosinophils % (auto) 3.1 % (0.0-7.0); Hematocrit 26.6 % (41.0-53.0); Hemoglobin 9.3 g/dL (13.5-17.5); Lymphocytes % (auto) 17.4 % (10.0-50.0); Mean Corpuscular Hemoglobin 36.1 pg (28.0-32.0); Mean Corpuscular Hgb Conc. 35.1 g/dL (32.0-36.0); Mean Corpuscular Volume 102.9 fL (80.0-100.0); Monocytes # (auto) 0.7 10 ^3/uL (0-1.3); Monocytes % (auto) 12.5 % (0.0-12.0); Neutrophils # (auto) 3.6 10 ^3/uL (1.6-8.6); Neutrophils % (auto) 66.1 % (37.0-80.0); Nucleated Red Blood Cells % 0.1 %; Platelet Count (auto) 112 10^3/uL (140-450); Red Blood Cells 2.58 10^6/uL (4.5-5.90); Red Cell Distribution Width 22.7 % (11.8-14.3); White Blood Cell 5.5 10^3/uL (4.4-10.8)
[2025-01-04 06:36] LABS: Alanine Aminotransferase 25 U/L (7-40); Albumin 3.3 g/dL (3.2-4.8); Alkaline Phosphatase 81 U/L (46-116); Anion Gap 7 (5-15); Aspartate Aminotransferase 20 U/L (13-40); BUN/Creatinine Ratio 20.6 (10.0-20.0); Carbon Dioxide 23 mmol/L (20-31); Chloride 104 mmol/L (98-107); Glucose 104 mg/dL (74-106); Potassium 4.1 mmol/L (3.5-5.1); Total Protein 6.1 g/dL (5.7-8.2)
[2025-01-04 06:44] LABS: Bilirubin, Total 6.2 mg/dL (0.2-1.0); Blood Urea Nitrogen 26 mg/dL (9-23); Calcium 11.3 mg/dL (8.7-10.4); Sodium 134 mmol/L (136-145)
[2025-01-04 06:50] LABS: Anisocytosis Slight; Macrocytosis Slight
[2025-01-04 06:51] LABS: Platelet Estimate Decreased
[2025-01-04 08:10] VITALS: PULSE 72; RESP 16; O2SAT 100
[2025-01-04 09:00] VITALS: BP 104/64; PULSE 72; RESP 16; TEMP 97.7; O2SAT 100
[2025-01-04 13:00] VITALS: BP 99/61; PULSE 70; RESP 15; TEMP 97.7; O2SAT 100
[2025-01-04] MEDS ORDERED: AZIT500T66 PO (13:39)
--- NOTE | 2025-01-04 13:43 | DVHDS2 ---
Discharge Summary Date of Admission January 01, 2025 at 07:05 Date of Discharge: January 04, 2025 Admitting Diagnosis Altered Mental status and confusion Wounds: None Labs/Diagnostic Data: Laboratory Results Test 01/04/25 05:38 01/02/25 06:26 01/01/25 00:36 White Blood Count 5.5 10^3/uL (4.4-10.8) Red Blood Count 2.58 10^6/uL (4.5-5.90) Hemoglobin 9.3 g/dL (13.5-17.5) Hematocrit 26.6 % (41.0-53.0) Mean Corpuscular Volume 102.9 fL (80.0-100.0) Mean Corpuscular Hemoglobin 36.1 pg (28.0-32.0) Mean Corpuscular Hemoglobin Concent 35.1 g/dL (32.0-36.0) Red Cell Distribution Width 22.7 % (11.8-14.3) Platelet Count 112 10^3/uL (140-450) Mean Platelet Volume 7.6 fL (6.9-10.8) Neutrophils (%) (Auto) 66.1 % (37.0-80.0) Lymphocytes (%) (Auto) 17.4 % (10.0-50.0) Monocytes (%) (Auto) 12.5 % (0.0-12.0) Eosinophils (%) (Auto) 3.1 % (0.0-7.0) Basophils (%) (Auto) 0.9 % (0.0-2.0) Neutrophils # (Auto) 3.6 10 ^3/uL (1.6-8.6) Lymphocytes # (Auto) 1.0 10 ^3/uL (0.4-5.4) Monocytes # (Auto) 0.7 10 ^3/uL (0-1.3) Eosinophils # (Auto) 0.2 10 ^3/uL (0-0.8) Basophils # (Auto) 0.1 10 ^3/uL (0-0.2) Nucleated Red Blood Cells 0.1 % Platelet Estimate Decreased Anisocytosis (manual) Slight Macrocytosis Slight [place] Cells Few Schistocytes Few Sodium Level 134 mmol/L (136-145) Potassium Level 4.1 mmol/L (3.5-5.1) Chloride Level 104 mmol/L (98-107) Carbon Dioxide Level 23 mmol/L (20-31) Anion Gap 7 (5-15) Blood Urea Nitrogen 26 mg/dL (9-23) Creatinine 1.26 mg/dL (0.700-1.30) Glomerular Filtration Rate Calc 65 mL/min (>90) BUN/Creatinine Ratio 20.6 (10.0-20.0) Serum Glucose 104 mg/dL (74-106) Calcium Level 11.3 mg/dL (8.7-10.4) Total Bilirubin 6.2 mg/dL (0.2-1.0) Aspartate Amino Transferase (AST) 20 U/L (13-40) Alanine Aminotransferase (ALT) 25 U/L (7-40) Alkaline Phosphatase 81 U/L (46-116) Ammonia 75 umol/L (11-32) Total Protein 6.1 g/dL (5.7-8.2) Albumin 3.3 g/dL (3.2-4.8) Poikilocytosis (manual) Slight Prothrombin Time 15.1 sec (9.3-11.8) Prothrombin Time INR 1.48 (0.9-1.15) Activated Partial Thromboplast Time 35.9 SEC (24.5-34.5) Lactic Acid Level 1.6 mmol/L (0.4-2.0) Lipase 59 U/L (12-53) Other Laboratory Tests 01/04/25 05:38 Brief Hx & Hospital Course: C 1-year-old male with a cirrhosis of liver ascites cholelithiasis diverticulosis anemia thrombocytopenia anxiety seizures history of repeated paracentesis history of esophageal varices l burden by his caregiver for intractable abdominal pain with nausea and vomiting. Seen by GI Dr. Almendarez advised no paracentesis needed as it is minimal and no colonoscopy needed treated with all his home medications including lactulose and patient has marginally improved. Patient being discharged home to continue all his home medications follow up with his primary DrGraham Prescription for azithromycin transmitted to pharmacy Condition very poor at the time of discharge His girlfriend Yessica requesting patient to be discharged today Consults/Reason for consult GI Operations or Procedures CT abdomen pelvis without contrast Condition at Discharge: Fair Final Diagnosis/Problems List Intractable abdominal pain with nausea secondary to cirrhosis of liver, seen by GI Dr. Mendez. advised no paracentesis needed as it is minimal ascites no colonoscopy needed Acute Hepatic encephalopathy, ammonia level 30, lactulose 30 mL p.o. q.6 hours Cirrhosis of liver Mild ascites Cholelithiasis Diverticulosis Anemia Thrombocytopenia Hyponatremia Anxiety Seizures History of repeated paracentesis Esophageal varices Discharge Disposition: Home Discharge Instruct/Medications Diet: Cardiac 2g Na,low cholest Activity: Light activity Follow Up/Referral: Resume all previous home medications Follow up with the primary doc Medications: Azithromycin Transmitted to pharmacy 36 (time Taken for discharge summary 36 minutes) Discharge Statement: "Patient was advised to return to the ER or call 911 if any headaches, dizziness, shortness of breath, chest pain, abdominal pain, bleeding, fevers, or worsening of medical condition. Patient was counseled about treatment plan, medications, possible side effects, patientverbalized understanding. All questions were answered to the best of my ability. This discharge took greater then 30 minutes in planning, reviewing documentation, counseling the patient, and discussing with other team members." ASSESSMENT ASSESSMENT Hospital Course Marginal improvement Assessment Intractable abdominal pain with nausea secondary to cirrhosis of liver, seen by GI Dr. Mendez. advised no paracentesis needed as it is minimal ascites no colonoscopy needed Acute Hepatic encephalopathy, ammonia level 30, lactulose 30 mL p.o. q.6 hours Cirrhosis of liver Mild ascites Cholelithiasis Diverticulosis Anemia Thrombocytopenia Hyponatremia Anxiety Seizures History of repeated paracentesis Esophageal varices Date of Service: January 04, 2025 Billing Provider: HUNTER AGUILLON MD Common Visit Codes: [id number] DISCH DAY >30min HUNTER AGUILLON MD January 04, 2025 13:43
[2025-01-04 16:37] VITALS: BP 110/65; PULSE 70; RESP 18; TEMP 36.5; O2SAT 100
[2025-01-04 17:00] VITALS: BP 99/62; PULSE 66; RESP 15; TEMP 97.8; O2SAT 100
== END 2025-01-04 18:20 | disposition home health service (06) | DRG 433 ==
LOC: ER 00:06 → EDBD 00:06 → OVERFLOW 07:05 → WEST WING 21:40
PROVIDERS: ADMIT Family Medicine; ATTEND Family Medicine
DX: K70.31 Alcoholic cirrhosis of liver with ascites (principal); E87.1 Hypo-osmolality and hyponatremia; K76.82 Hepatic encephalopathy; K57.30 Diverticulosis of large intestine without perforation or abscess without bleeding; D64.9 Anemia, unspecified; F10.10 Alcohol abuse, uncomplicated; Y90.9 Presence of alcohol in blood, level not specified; D69.6 Thrombocytopenia, unspecified; F41.9 Anxiety disorder, unspecified; G40.909 Epilepsy, unspecified, not intractable, without status epilepticus; I10 Essential (primary) hypertension; G47.30 Sleep apnea, unspecified; Z88.8 Allergy status to other drugs, medicaments and biological substances; Z79.899 Other long term (current) drug therapy; Z79.2 Long term (current) use of antibiotics; Z90.49 Acquired absence of other specified parts of digestive tract
CPT/HCPCS: 36415; 74177; 80053; 82140; 83605; 83690; 85025; 85610; 85730; 87040; 93005; 96365; 96375; 99291; G0378; J2405; J2470